=== PATIENT | female | born 1975 | race African-American/Black ===

== ENCOUNTER 2021-09-25 21:24 | Emergency (ER) | payer OTHER ==
[~2021-09-25] VITALS: Ht 162.6 cm; Wt 90.9 kg
[2021-09-25 21:35] VITALS: BP 179/97
[2021-09-25] MEDS ORDERED: ONDA4TAB12 PO (22:23)
--- NOTE | 2021-09-25 22:23 | PHYS DOC ---
Past Medical History Past Surgical History: Cholecystectomy Smoking Status: Never Smoker Alcohol Use: None General Adult EDM: Chief Complaint: FLU SYMPTOM HPI: HPI: Patient is a 45 year old female presents with the chief complaint of flu like symptoms. Since last Sunday patient has had headache fever chills nausea and diarrhea. states patient has not been eating solid foods. Patient states she has had dry mouth despite PO intake. test positive for flu last week. Patient symptoms started shortly after. states he tested negative for covid. Patient is unvaccinated. Patient with oxygen saturation 97% on room air. Patient's heart rate in the 90s. Patient with no respiratory distress she is in no acute distress. Review of Systems: Review of Systems: Review of systems: Constitutional symptoms- Positive fever, Positive chills. Eyes- No Discharge, No Visual Loss Respiratory symptoms- No shortness of breath, No wheezing, No Dyspnea on Exertion Cardiovascular Systems; No chest pain, No Palpitations, No syncope Gastrointestinal symptoms: NO abdominal pain, Positive nausea, no vomiting Positive diarrhea. Genitourinary symptoms: No dysuria. Musculoskeletal symptoms: No back pain No extremity pain. NEUROLOGICAL Symptoms: Positive headache, no generalized weakness; No focal Weakness Skin: No rash. Heart Score: C/O Chest Pain: N/A Risk Factors: Risk Factors: DM, Current or recent (<one month) smoker, HTN, HLP, family history of CAD, obesity. Risk Scores: Score 0 - 3: 2.5% MACE over next 6 weeks - Discharge Home Score 4 - 6: 20.3% MACE over next 6 weeks - Admit for Clinical Observation Score 7 - 10: 72.7% MACE over next 6 weeks - Early Invasive Strategies Allergies: Allergies: Allergies Coded Allergies Type Severity Reaction Last Updated Verified acetaminophen Allergy Unknown 09/25/21 Yes hydrocodone Allergy Unknown 09/25/21 Yes morphine Allergy Unknown 09/25/21 Yes Physical Exam: PE: General: alert, no acute distress. Skin: warm, dry and intact, no erythema, no rash. HENT: bilateral external ears normal, oropharynx moist, nose normal. Head:: Normocephalic, atraumatic. Neck: Trachea midline. Eyes: EOMI, Normal conjunctiva, No drainage CARDIOVASCULAR: Regular rate and rhythm RESPIRATORY: No respiratory distress Back: Full range of motion. MUSCULOSKELETAL: Full range of motion of bilateral upper and lower extremities. GASTROINTESTINAL: Abdomen soft without rebound or guarding. NEUROLOGICAL: Alert and noted to person, place and time. No neurological deficits observed Psychiatric: Cooperative. Normal judgment Current Patient Data: Vital Signs: Vital Signs Date Time Temp Pulse Resp B/P (MAP) Pulse Ox O2 Delivery O2 Flow Rate FiO2 09/25/21 21:35 99.7 109 14 179/97 (124) Room Air 99.7 EKG: EKG: [] Radiology/Procedures: Radiology/Procedures: [] Course & Med Decision Making: Course & Med Decision Making Pertinent Labs and Imaging studies reviewed. (See chart for details) [] We will swab the patient for influenza and COVID. Discussed home treatment for tylenol ibuprofen. Rx zofran. Increase PO fluids. rapid flu and covid negative. Rx Zithromax and zofran Dragon Disclaimer: Edwige Disclaimer: This electronic medical record was generated, in whole or in part, using a voice recognition dictation system. Departure Departure Impression: Primary Impression: Viral syndrome Disposition: HOME / SELF CARE / HOMELESS Condition: STABLE Referrals: UNKNOWN PCP NAME (PCP) Patient Instructions: Viral Syndrome Scripts Azithromycin (ZITHROMAX) 250 Mg Tablet 1 PKG PO UD, #6 TAB Prov: LUIS KYLE I DO 09/25/21 Ondansetron (ONDANSETRON ODT) 4 Mg Tab.rapdis 1 TAB PO PRN Q6-8HRS, #16 TAB Prov: LUIS KYLE I DO 09/25/21 LUIS KYLE DO Sep 25, 2021 22:23
[2021-09-25 22:40] LABS: INFLUENZA A PATIENT NEGATIVE (NEGATIVE); INFLUENZA B PATIENT NEGATIVE (NEGATIVE)
[2021-09-25] MEDS ORDERED: AZIT250T PO (22:48)
--- NOTE | 2021-09-26 17:43 | NUR ---
IP: Attempted to contact pt concerning covid results. No answer, left a voicemail to return the call.
--- NOTE | 2021-09-27 16:40 | NUR ---
IP: Informed pt pf negative covid test. Pt verbalized understanding.
== END 2021-09-25 22:55 | disposition home or self-care (01) ==
LOC: ER 21:24
DX: B34.9 Viral infection, unspecified (principal); Z20.822 Contact with and (suspected) exposure to COVID-19; Z88.5 Allergy status to narcotic agent; Z88.6 Allergy status to analgesic agent
CPT/HCPCS: 87428; 99283; U0003; U0005